=== PATIENT | male | born 1965 | race Asian ===

== ENCOUNTER 2024-10-28 10:11 | Emergency (ER) | payer OTHER ==
[~2024-10-28] VITALS: Ht 170.2 cm; Wt 96.8 kg
[2024-10-28 10:20] VITALS: BP 157/91; PULSE 69; RESP 18; TEMP 96.8; O2SAT 97
== END 2024-10-28 12:25 | disposition home or self-care (01) ==
LOC: EMS 10:14
DX: M25.511 Pain in right shoulder (principal); M25.512 Pain in left shoulder; F41.9 Anxiety disorder, unspecified
CPT/HCPCS: 99281; Z7502

== ENCOUNTER 2025-02-14 11:50 | Emergency (ER) | payer OTHER ==
[~2025-02-14] VITALS: Ht 165.1 cm; Wt 93.6 kg
[2025-02-14 11:52] VITALS: TEMP 98.5
[2025-02-14] MEDS ORDERED: HYDROGEN PEROXIDE 3% 118 ML SOLUTION ONE (12:01)
[2025-02-14] MEDS: HYDROGEN PEROXIDE 3% 118 ML SOLUTION TP ONE (12:12)
[2025-02-14] MEDS: AMOX TR/POT CLAV 875 MG/125 MG TABLET PO ONE (12:14)
[2025-02-14] MEDS: OxyCODONE HCL/ACETAMINOPHEN 5-325 MG TABLET PO ONE (12:14)
[2025-02-14] MEDS: LIDOCAINE 1% 10 ML VIAL SQ ONE (12:14)
[2025-02-14] MEDS: ONDANSETRON 4 MG TABLET PO ONE (12:14)
[2025-02-14] MEDS ORDERED: AMOX-457 PO (14:30)
[2025-02-14] MEDS: PERTUSS(ACELL),DIPH,TET/PF 0.5 ML SYRINGE [ADULT] IM. ONE (14:32)
[2025-02-14 14:45] VITALS: BP 123/84; PULSE 89; RESP 18; O2SAT 96
== END 2025-02-14 14:51 | disposition home or self-care (01) ==
LOC: EMS 12:06
DX: S61.411A Laceration without foreign body of right hand, initial encounter (principal); W54.0XXA Bitten by dog, initial encounter; Y93.89 Activity, other specified; Y92.89 Other specified places as the place of occurrence of the external cause; Y99.0 Civilian activity done for income or pay
CPT/HCPCS: 99284; 90715; 90471; 12002; Q0162; J3490

== ENCOUNTER 2025-02-16 08:03 | Emergency (ER) | payer OTHER ==
[~2025-02-16] VITALS: Ht 165.1 cm; Wt 93.6 kg
[~2025-02-16 08:03] MED LIST: AMOX-457 PO
[2025-02-16 08:06] VITALS: TEMP 97.5
[2025-02-16] MEDS ORDERED: IBUP-1554 PO (09:30)
[2025-02-16] MEDS ORDERED: HYDR-4062 PO (09:30)
[2025-02-16] MEDS ORDERED: BACI28.410 TP (09:30)
[2025-02-16 09:52] VITALS: BP 134/86; PULSE 62; RESP 18; O2SAT 97
== END 2025-02-16 09:54 | disposition home or self-care (01) ==
LOC: EMS 08:04
DX: S61.411A Laceration without foreign body of right hand, initial encounter (principal); S20.219A Contusion of unspecified front wall of thorax, initial encounter; Z79.899 Other long term (current) drug therapy; W54.0XXD Bitten by dog, subsequent encounter; Y93.89 Activity, other specified; Y92.89 Other specified places as the place of occurrence of the external cause; Y99.8 Other external cause status
CPT/HCPCS: 99283; Z7502

== ENCOUNTER 2025-02-19 12:08 | Emergency (ER) | payer OTHER ==
[~2025-02-19] VITALS: Ht 165.1 cm; Wt 94.0 kg
[~2025-02-19 12:08] MED LIST changes: +BACI28.410 TP; +HYDR-4062 PO; +IBUP-1554 PO
[2025-02-19 12:10] VITALS: TEMP 98
[2025-02-19 12:30] VITALS: PULSE 86; RESP 16; O2SAT 99
[2025-02-19] MEDS: ACETAMINOPHEN 500 MG TABLET PO ONE (13:08)
[2025-02-19] MEDS: BACITRACIN 28 GM OINTMENT TP ONE (13:09)
[2025-02-19] MEDS ORDERED: MELA3TAB89 PO (13:33)
[2025-02-19 14:00] VITALS: BP 146/89; PULSE 77; RESP 18; O2SAT 98
== END 2025-02-19 14:16 | disposition home or self-care (01) ==
LOC: EMS 12:10
DX: S20.211D Contusion of right front wall of thorax, subsequent encounter (principal); S61.451D Open bite of right hand, subsequent encounter; Z79.899 Other long term (current) drug therapy; Z48.00 Encounter for change or removal of nonsurgical wound dressing; W54.0XXA Bitten by dog, initial encounter
CPT/HCPCS: 99283; 71101; G0238; 94760

== ENCOUNTER 2025-02-26 09:58 | Emergency (ER) | payer OTHER ==
[~2025-02-26] VITALS: Ht 167.6 cm; Wt 93.6 kg
[~2025-02-26 09:58] MED LIST changes: +MELA3TAB89 PO
[2025-02-26 10:03] VITALS: BP 136/76; PULSE 62; RESP 18; TEMP 98.1; O2SAT 98
== END 2025-02-26 11:30 | disposition home or self-care (01) ==
LOC: EMS 10:02
DX: S61.411D Laceration without foreign body of right hand, subsequent encounter (principal); Z79.899 Other long term (current) drug therapy; X58.XXXD Exposure to other specified factors, subsequent encounter
CPT/HCPCS: 99281; Z7502